=== PATIENT | female | born 1950 | race Caucasian/White ===

== ENCOUNTER 2022-01-31 09:34 | Outpatient (CLI) | payer MEDICARE, OTHER | END 2022-01-31 09:35 | disposition home or self-care (01) | LOC: CSHMAMMO 09:34 | PROVIDERS: ATTEND Student in an Organized Health Care Education/Training Program | DX: Z12.31 Encounter for screening mammogram for malignant neoplasm of breast (principal) | CPT/HCPCS: 77063; 77067 ==

== ENCOUNTER 2024-05-05 10:24 | Emergency (ER) | payer MEDICARE, OTHER ==
[2024-05-05 11:00] LABS: #Basophils 0.05 10x3/uL (0.0-0.2); #Monocytes 0.91 10x3/uL (0.0-1.1); #Neutrophils 7.33 10x3/uL (1.5-8.4); %Basophils 0.4 % (0.0-2.0); %Eosinophils 0.8 % (0.0-6.0); %Lymphocytes 31.7 % (18.0-47.0); %Monocytes 7.4 % (0.0-10.0); %Neutrophils 59.4 % (40.0-75.0); Hematocrit 42.3 % (34.9-44.5); Hemoglobin 14.5 g/dL (12.0-15.5); Mean Corpuscular HGB CONC 34.3 g/dL (32.0-36.0); Mean Corpuscular Hemoglobin 32.6 pg (27.0-33.0); Mean Corpuscular Volume 95.1 fL (81.6-98.3); Mean Platelet Volume 11.1 fL (7.4-10.4); Platelet Count 211 10x3/uL (150-450); RBC Distribution Width 12.1 % (11.5-14.5); Red Blood Cell (RBC) Count 4.45 10x6/uL (3.90-5.03); White Blood Cell (WBC) Count 12.4 10x3/uL (3.5-10.5)
[2024-05-05] MEDS ORDERED: Ondansetron PF 4 MG/2 ML Vial ONE (11:15)
[2024-05-05] MEDS ORDERED: Dicyclomine 20 MG/2 ML VIAL ONE (11:16)
[2024-05-05 11:24] LABS: ALT (SGPT) 17 U/L (8-55); AST (SGOT) 15 U/L (5-34); Albumin 4.5 g/dL (3.4-4.8); Alkaline Phosphatase 111 U/L (40-110); Anion Gap 19 mmol/L (10-20); BUN (Urea Nitrogen) 9 mg/dL (9.8-20.1); Bilirubin, Total 0.6 mg/dL (0.2-1.2); Calc. Creatinine Clearance 0 mL/min (70-130); Calcium 9.7 mg/dL (7.8-10.44); Carbon Dioxide 19 mmol/L (23-31); Chloride 105 mmol/L (98-107); Estimated GFR 74; Globulin 2.9 g/dL (2.4-3.5); Glucose 120 mg/dL (83-110); Lipase 32 U/L (8-78); Potassium 3.6 mmol/L (3.5-5.1); Protein, Total 7.4 g/dL (5.8-8.1); Sodium 139 mmol/L (136-145)
[2024-05-05 11:26] LABS: Troponin I Less than 0.010 ng/mL (< 0.028)
[2024-05-05 11:27] LABS: Bilirubin Neg (Negative); Blood, Urine Negative (Negative); Clarity Clear (Clear); Glucose, Urine (Dipstick) Normal (Negative); Ketone, Urine 5 mg/dL (Negative); Leukocyte Negative (Negative); Nitrite Negative (Negative); Protein, Urine (Dipstick) Negative (Neg-Trace); Urobilinogen Normal mg/dL (Less than 2)
[2024-05-05 11:40] LABS: Bacteria/HPF None Seen HPF (None Seen); CAUTI Indications for Culture Pelvic or flank pain; RBC/HPF None Seen HPF (0-3); Squamous Epithelial 0-3 HPF (0-3); WBC/HPF None Seen HPF (0-3)
[2024-05-05 11:41] LABS: Urine Culture Reflex No No
== END 2024-05-05 14:34 | disposition home or self-care (01) ==
LOC: CSHERS 10:24
DX: K44.9 Diaphragmatic hernia without obstruction or gangrene (principal); R10.13 Epigastric pain; I10 Essential (primary) hypertension; Z55.0 Illiteracy and low-level literacy
CPT/HCPCS: 71045; 76705; 80053; 81001; 83690; 84484; 85025; 93005; J2405; 36415; 96372; 96374

== ENCOUNTER 2024-05-27 08:27 | Outpatient (CLI) | payer MEDICARE, OTHER | END 2024-05-27 08:28 | disposition home or self-care (01) | LOC: CSHRAD 08:27 | PROVIDERS: ATTEND Surgery | DX: K44.9 Diaphragmatic hernia without obstruction or gangrene (principal); K21.9 Gastro-esophageal reflux disease without esophagitis | CPT/HCPCS: 74220 ==

== ENCOUNTER 2024-05-27 09:44 | Outpatient (CLI) | payer MEDICARE, OTHER ==
[2024-05-27 10:13] LABS: #Basophils 0.04 10x3/uL (0.0-0.2); #Eosinophils 0.17 10x3/uL (0.0-0.5); #Monocytes 0.48 10x3/uL (0.0-1.1); #Neutrophils 2.72 10x3/uL (1.5-8.4); %Basophils 0.6 % (0.0-2.0); %Eosinophils 2.5 % (0.0-6.0); %Lymphocytes 49.4 % (18.0-47.0); %Monocytes 7.1 % (0.0-10.0); %Neutrophils 40.3 % (40.0-75.0); Hematocrit 43.1 % (34.9-44.5); Hemoglobin 14.5 g/dL (12.0-15.5); Mean Corpuscular HGB CONC 33.6 g/dL (32.0-36.0); Mean Corpuscular Hemoglobin 32.9 pg (27.0-33.0); Mean Corpuscular Volume 97.7 fL (81.6-98.3); Mean Platelet Volume 11.3 fL (7.4-10.4); Platelet Count 201 10x3/uL (150-450); RBC Distribution Width 12.2 % (11.5-14.5); Red Blood Cell (RBC) Count 4.41 10x6/uL (3.90-5.03); White Blood Cell (WBC) Count 6.8 10x3/uL (3.5-10.5)
[2024-05-27 10:31] LABS: Anion Gap 17 mmol/L (10-20); BUN (Urea Nitrogen) 10 mg/dL (9.8-20.1); Calc. Creatinine Clearance 0 mL/min (70-130); Calcium 9.5 mg/dL (7.8-10.44); Carbon Dioxide 24 mmol/L (23-31); Chloride 106 mmol/L (98-107); Estimated GFR 80; Glucose 117 mg/dL (83-110); Potassium 3.8 mmol/L (3.5-5.1); Sodium 143 mmol/L (136-145)
== END 2024-05-27 09:45 | disposition home or self-care (01) ==
LOC: CSHLAB 09:44
PROVIDERS: ATTEND Surgery
DX: Z01.812 Encounter for preprocedural laboratory examination (principal); K44.9 Diaphragmatic hernia without obstruction or gangrene
CPT/HCPCS: 80048; 85025

== ENCOUNTER 2024-06-04 05:55 | Day surgery (SDC) | payer MEDICARE, OTHER ==
[2024-05-27 10:12] VITALS: BMI 26.6
[2024-06-04] MEDS ORDERED: Bupivacaine/Epinephrine 0.25% 30 ML VIAL ONE (06:55)
[2024-06-04] MEDS ORDERED: PROPOFOL 20 ML ONE (07:10)
[2024-06-04] MEDS ORDERED: fentaNYL 50 mcg/mL 1 mL Vial ONE ×2 (07:11→09:18)
[2024-06-04] MEDS ORDERED: Rocuronium Bromide 10 MG/ML (10ML VIAL) ONE (07:11)
[2024-06-04] MEDS ORDERED: Lidocaine 1% PF 5 ML VIAL ONE (07:11)
[2024-06-04] MEDS ORDERED: Propofol 1,000 MG/100 ML VIAL IV ONE (07:15)
[2024-06-04] MEDS ORDERED: CEFAZOLIN 2 GM VIAL ONE (07:20)
[2024-06-04] MEDS ORDERED: Dexamethasone 20 MG/5 ML VIAL ONE (07:41)
[2024-06-04] MEDS ORDERED: ePHEDrine Sulfate 50 MG/10 ML VIAL ONE (07:45)
[2024-06-04] MEDS ORDERED: Glycopyrrolate 0.2 MG/ML 5 ML SYRINGE ONE (07:49)
[2024-06-04] MEDS ORDERED: PHENYLEPHRINE-NS 100 MCG/ML 10 ML SYRINGE ONE (08:11)
[2024-06-04] MEDS ORDERED: Dexmedetomidine 200 MCG/2 ML VIAL ONE (08:32)
[2024-06-04] MEDS ORDERED: SUGAMMADEX SODIUM 200 MG/2 ML VIAL ONE (08:34)
== END 2024-06-04 10:45 | disposition home or self-care (01) ==
LOC: CSHSDC 05:55
PROVIDERS: ATTEND Surgery
PROC: 0BQT4ZZ Repair Diaphragm, Percutaneous Endoscopic Approach (ICD-10-PCS; principal; 2024-06-04)
DX: K44.9 Diaphragmatic hernia without obstruction or gangrene (principal); Z90.49 Acquired absence of other specified parts of digestive tract
CPT/HCPCS: 43281; J1100; J2704 ×2; J3010